=== PATIENT | male | born 1940 | race Caucasian/White ===

== ENCOUNTER 2018-02-26 19:52 | Emergency (ER) | payer OTHER, MEDICARE ==
[~2018-02-26] VITALS: Ht 188 cm; Wt 95.3 kg
[2018-02-26 19:55] VITALS: BP_SYST 153
--- NOTE | 2018-02-26 19:55 | NUR ---
Patient to ER bed 4 to gown for evaluation. Side rails up.
--- NOTE | 2018-02-26 20:00 | NUR ---
Pt is AAO x 4 and ambulatory, complaining of generalized weakness, cough, shortness of breath since yesterday. Per [place], [place] got [place], pt exhibited "sweating, shortness of breath, fatigue, severe cough, sore throat, and chills." Pt is able to speak in full sentences with no difficulty. O2 saturation is 97% at room air. Pt denies N/V but complains of upper back pain when laying down. No other injuries/complaints per patient or noted.
--- NOTE | 2018-02-26 20:12 | NUR ---
ER Dr. Damico at bedside examining patient.
[2018-02-26] MEDS ORDERED: NACL 0.9% 1,000 ML IV ONE (20:19)
[2018-02-26 21:06] LABS: BILIRUBIN,URINE NEGATIVE (NEGATIVE); BLOOD, URINE NEGATIVE (NEGATIVE); CLARITY/URINE CLEAR (CLEAR); COLOR,URINE YELLOW (YELLOW); GLUCOSE,URINE NEGATIVE (NEGATIVE); KETONES,URINE NEGATIVE (NEGATIVE); LEUKOCYTE ESTERASE ,URINE TRACE (NEGATIVE); NITRITE, URINE NEGATIVE (NEGATIVE); PROTEIN URINE NEGATIVE (NEGATIVE); UROBILINOGEN,URINE 0.2 (0.2-1.0)
[2018-02-26 21:07] LABS: BACTERIA,URINE FEW /HPF (None Seen); RBC,URINE 0-3 /HPF (0-3)
[2018-02-26 21:08] LABS: MUCUS,URINE 1+ /LPF (None Seen)
[2018-02-26 21:12] LABS: BARBITURATE, URINE NEGATIVE (NEG <=200); BENZODIAZEPINE, URINE NEGATIVE (NEG <=150); CANNABINOID, URINE NEGATIVE (NEG <=50); COCAINE, URINE NEGATIVE (NEG <=150); METHAMPHETAMINES SCREEN,URINE NEGATIVE (NEG <=500); OPIATE, URINE NEGATIVE (NEG <=100); PHENCYCLIDINE SCREEN,URINE NEGATIVE (NEG <=25); UR TRICYCLIC ANTIDEPRESSANTS NEGATIVE (NEG <=300); URINE AMPHETAMINE NEGATIVE (NEG <=500); URINE METHADONE NEGATIVE (NEG <=200); URINE OXYCODONE SCREEN NEGATIVE (NEG <=100); URINE PROPOXYPHENE SCREEN NEGATIVE (NEG <=300)
[2018-02-26 21:14] LABS: BASOPHILS % (AUTO) 0.7 % (0.0-2.0); EOSINOPHILS # (AUTO) 0.2 K/uL (0.0-0.4); EOSINOPHILS % (AUTO) 2.8 % (0.0-4.0); HEMATOCRIT 44.4 % (36-54); HEMOGLOBIN 14.2 g/dL (14.0-18.0); LYMPHOCYTES # (AUTO) 1.7 K/uL (1.0-5.5); LYMPHOCYTES % (AUTO) 25.6 % (20.5-51.5); MEAN CORPUSCULAR HEMOGLOBIN 26 pg (27-31); MEAN CORPUSCULAR HGB CONC 32 % (32-36); MEAN CORPUSCULAR VOLUME 82 fL (79.0-98.0); MONOCYTES # (AUTO) 0.5 K/uL (0.0-1.0); MONOCYTES % (AUTO) 7.6 % (1.7-9.3); NEUTROPHILS # (AUTO) 4.4 K/uL (1.8-7.7); NEUTROPHILS % (AUTO) 63.3 % (40.0-70.0); PLATELET COUNT (AUTO) 153 K/uL (130-430); RED BLOOD CELL COUNT(AUTO) 5.42 MIL/uL (4.2-6.2); RED CELL DISTRIBUTION WIDTH 12.8 % (9.0-15.0); WHITE BLOOD COUNT (AUTO) 6.8 K/uL (4.8-10.8)
[2018-02-26 21:16] LABS: ANION GAP 6 (5-15); CALCIUM 9.4 mg/dL (8.4-11.0); CHLORIDE 101 mmol/L (98-107); CREATININE 1.33 mg/dL (0.55-1.30); GLUCOSE 180 mg/dL (70-99); POTASSIUM 4.1 mmol/L (3.5-5.1); SODIUM SERUM 134 mmol/L (136-145); UREA NITROGEN, BLOOD 18 mg/dL (8-21)
[2018-02-26 21:21] LABS: ALANINE AMINOTRANSFERASE 29 U/L (12-78); ALBUMIN 3.6 g/dL (3.4-4.8); ALCOHOL, BLOOD < 3 mg/dL (<10); ASPARTATE AMINOTRANSFERASE 17 U/L (10-37); TOTAL BILIRUBIN 0.4 mg/dL (0.0-1.0)
[2018-02-26 21:27] LABS: PROTHROMBIN TIME 9.8 SECS (9.5-12.5)
--- NOTE | 2018-02-26 22:59 | NUR ---
ER Dr. Damico at bedside explaining results to patient and son.
[2018-02-26 23:23] VITALS: BP_SYST 146
--- NOTE | 2018-02-26 23:23 | NUR ---
Patient given written and verbal discharge instructions and verbalizes understanding. ER MD discussed with patient the results and treatment provided. Patient in stable condition. ID arm band removed. IV catheter removed intact and dressing applied, no active bleeding. No Rx given. Patient educated on pain management and to follow up with PMD. Pain Scale 0. Opportunity for questions provided and answered. Medication side effect fact sheet provided.
== END 2018-02-26 23:23 | disposition home or self-care (01) ==
LOC: SED 19:52
DX: E86.0 Dehydration (principal); R53.81 Other malaise; R41.0 Disorientation, unspecified; M54.5 Low back pain; F17.200 Nicotine dependence, unspecified, uncomplicated; E11.9 Type 2 diabetes mellitus without complications; I10 Essential (primary) hypertension; N40.0 Benign prostatic hyperplasia without lower urinary tract symptoms; Z98.890 Other specified postprocedural states
CPT/HCPCS: 36415; 71045; 80053; 80307; 81000; 83605; 83880; 84484; 85025; 85379; 85610; 85730; 86403; 87040; 87081; 87086; 93005; 96360; 96361; 99285; G0482; J7030

== ENCOUNTER 2018-08-25 13:30 | Emergency (ER) | payer OTHER, MEDICARE ==
[~2018-08-25] VITALS: Ht 188 cm; Wt 87.1 kg
[2018-08-25 13:39] VITALS: BP_SYST 134
== END 2018-08-25 15:55 | disposition left against medical advice (07) ==
LOC: SED 13:30
DX: J02.9 Acute pharyngitis, unspecified (principal); R05 Cough; R09.81 Nasal congestion; M79.10 Myalgia, unspecified site; R50.9 Fever, unspecified; Z53.21 Procedure and treatment not carried out due to patient leaving prior to being seen by health care provider
CPT/HCPCS: 36415; 86710; 99281

== ENCOUNTER 2020-08-21 13:48 | Emergency (ER) | payer OTHER, MEDICARE ==
[~2020-08-21] VITALS: Ht 188 cm; Wt 94.8 kg
[2020-08-21 14:16] VITALS: BP_SYST 142
[2020-08-21] MEDS ORDERED: NS 1000 ML IV.SOLN IV ONE (17:45)
[2020-08-21 18:04] VITALS: BP_SYST 142
== END 2020-08-21 18:04 | disposition left against medical advice (07) ==
LOC: SED 13:48
DX: R19.7 Diarrhea, unspecified (principal); E86.0 Dehydration; I10 Essential (primary) hypertension; E11.9 Type 2 diabetes mellitus without complications; Z20.822 Contact with and (suspected) exposure to COVID-19
CPT/HCPCS: 36415; 99283